=== PATIENT | female | born 1955 | race Caucasian/White ===

== ENCOUNTER → 2016-09-05 | Outpatient (CLI) | payer OTHER ==
--- NOTE | 2016-09-05 13:44 | RAD ---
Ultrasound neck soft tissue 09/05/2016 at 1310 hours Indication: Right neck lump for 2 weeks Comparison: None available Technique: Sonographic grayscale imaging of the right neck was performed. Findings: There is a 1.8 x 1.6 x 1.6 cm circumscribed, lobulated lesion in the superficial soft tissues of the right neck, which appears to be deep to the sternal erik mastoid muscle. Internal architecture is mixed with hyperechoic and hypoechoic areas suggestive of a solid lesion. There is no significant fatty arjun. There is no significant posterior shadowing. No evidence for abscess. Impression: 1.8 x 1.6 x 1.6 cm lesion in the right neck has imaging characteristics suspicious for a lymph node. This lymph node is enlarged by size criteria. Further evaluation with a dedicated neck CT is recommended for evaluation of additional lymph nodes.
== END | disposition home or self-care (01) ==
LOC: US 12:40
PROVIDERS: ATTEND Nurse Practitioner Adult Health
DX: R22.1 Localized swelling, mass and lump, neck (principal)
CPT/HCPCS: 76536

== ENCOUNTER → 2016-12-29 | Outpatient (CLI) | payer OTHER ==
--- NOTE | 2016-12-29 17:25 | RAD ---
DATE: December 29, 2016 EXAM: MAMMO NAM SCREENING BILATERAL HISTORY: Screening study COMPARISON: December 12, 2014 This study was interpreted with the benefit of Computerized Aided Detection (CAD). 2-D digital mammographic views of both breasts were performed in the CC and MLO projections. 3-D digital tomosynthesis of both breasts were performed in the CC and MLO projections and reviewed on a computer workstation. FINDINGS: The breast parenchyma is heterogeneously dense. Multiple bilateral breast nodules are again noted which are similar in density and shape and are smooth. This is a benign finding. There are no new dominant suspicious masses, suspicious microcalcifications or evidence of architectural distortion. IMPRESSION: There are no mammographic indicators for malignancy. BI-RADS CATEGORY: 2 BENIGN FINDING RECOMMENDED FOLLOW-UP: 12M 12 MONTH FOLLOW-UP PQRS compliance statement: Patient information was entered into a reminder system with a target due date December 30, 2017 for the next mammogram. Mammography is a sensitive method for finding small breast cancers, but it does not detect them all and is not a substitute for careful clinical examination. A negative mammogram does not negate a clinically suspicious finding and should not result in delay in biopsying a clinically suspicious abnormality. "Our facility is accredited by the [employer]amm[employer]." The patient's breast density may affect the ability of mammography to detect breast cancer. There are 4 categories of breast density, A, B, C and D. Breast density A means that most of the breast tissue is replaced with adipose tissue and therefore is not dense. Breast density B means that the breast tissue is mildly dense and scattered. Breast density C means that the breast tissue is heterogeneously dense. Breast density D means that the breast tissue is very dense. Breast densities especially C and D may decrease the sensitivity of mammography to detect breast cancer. Therefore, the patient may benefit from 3-D breast mammography (3D breast tomography) as a part of their screening mammogram. Insurance may or may not pay for this additional imaging. The patient's breast density based on today's mammogram is category C.
== END | disposition home or self-care (01) ==
LOC: MAMMO 14:36
PROVIDERS: ATTEND Family Medicine
DX: Z12.31 Encounter for screening mammogram for malignant neoplasm of breast (principal)
CPT/HCPCS: 77063; G0202; 77067

== ENCOUNTER → 2017-11-07 | Day surgery (SDC) | payer OTHER ==
[~2017-11-07] MED LIST: ALBUTEROL SULFATE 2.5 MG/3 ML NEBU. NEB PRN; ATROPINE 0.5 MG/5 ML DISP.SYRIN. IV PRN; CELE200C PO; CYCL-331 PO; ESTR1PAT51 TD; FENO134C PO; GABA-586 PO; IV RINGERS SOLUTION,LACTATED 1,000 ML IV SCH; LEVO88TA2 PO; LIDOCAINE 2% PF Vial for OR 5 ML VIAL. ONE; NALOXONE 0.4 MG/ML VIAL. IV PRN; NAPR-514 PO; NEBI10TA3 PO; ONDANSETRON PF 4 MG/2 ML VIAL. IV PRN; PHEN37.53 PO; POTA10TA5 PO; PROPOFOL 40 ML IV ONE; TRIA1CAP3 PO; diphenhydrAMINE 50 MG/ML VIAL IV PRN
[2017-11-07 12:00] VITALS: BP 114/64
== END | disposition home or self-care (01) ==
LOC: SURG 09:40
PROVIDERS: ATTEND Internal Medicine Gastroenterology
DX: Z12.11 Encounter for screening for malignant neoplasm of colon (principal); K63.5 Polyp of colon; K63.89 Other specified diseases of intestine; Z86.010 Personal history of colon polyps; E78.5 Hyperlipidemia, unspecified; Z98.890 Other specified postprocedural states; Z88.1 Allergy status to other antibiotic agents; Z80.3 Family history of malignant neoplasm of breast; Z88.8 Allergy status to other drugs, medicaments and biological substances; Z79.899 Other long term (current) drug therapy
CPT/HCPCS: 45385; J2704; J7120; 45380; J2001

== ENCOUNTER → 2018-01-01 | Outpatient (CLI) | payer OTHER ==
[2017-11-07 12:00] VITALS: BP 114/64
[~2018-01-01] MED LIST changes: -ALBUTEROL SULFATE 2.5 MG/3 ML NEBU. NEB PRN; -ATROPINE 0.5 MG/5 ML DISP.SYRIN. IV PRN; -IV RINGERS SOLUTION,LACTATED 1,000 ML IV SCH; -LIDOCAINE 2% PF Vial for OR 5 ML VIAL. ONE; -NALOXONE 0.4 MG/ML VIAL. IV PRN; -ONDANSETRON PF 4 MG/2 ML VIAL. IV PRN; -PROPOFOL 40 ML IV ONE; -diphenhydrAMINE 50 MG/ML VIAL IV PRN
--- NOTE | 2018-01-01 16:40 | RAD ---
DATE: 01/01/2018 EXAM: MAMMO NAM SCREENING BILATERAL HISTORY: Routine screening COMPARISON: 12/29/2016 This study was interpreted with the benefit of Computerized Aided Detection (CAD). Breast Density: HETERO The breast parenchyma is heterogenously dense, which could reduce sensitivity of mammography. Breast parenchyma level C. FINDINGS: There are numerous smooth nodules in both breasts, also evident on the previous study. No spiculated mass or architectural distortion is identified. Several benign type calcifications are noted. No suspicious microcalcifications have developed. IMPRESSION: There is no mammographic evidence of malignancy in either breast. BI-RADS CATEGORY: 2 BENIGN FINDING(S) RECOMMENDED FOLLOW-UP: 12M 12 MONTH FOLLOW-UP PQRS compliance statement: Patient information was entered into a reminder system with a target due date for the next mammogram. Mammography is a sensitive method for finding small breast cancers, but it does not detect them all and is not a substitute for careful clinical examination. A negative mammogram does not negate a clinically suspicious finding and should not result in delay in biopsying a clinically suspicious abnormality. "Our facility is accredited by the [employer] Mammography [employer]."
== END | disposition home or self-care (01) ==
LOC: MAMMO 13:40
PROVIDERS: ATTEND Family Medicine
DX: Z12.31 Encounter for screening mammogram for malignant neoplasm of breast (principal)
CPT/HCPCS: 77063; 77067

== ENCOUNTER → 2019-01-02 | Outpatient (CLI) | payer OTHER ==
[2017-11-07 12:00] VITALS: BP 114/64
--- NOTE | 2019-01-03 15:53 | RAD ---
DATE: 01/02/2019. EXAM: MAMMO NAM SCREENING BILATERAL. HISTORY: Routine mammographic screening. COMPARISON: 01/01/2018. This study was interpreted with the benefit of Computerized Aided Detection (CAD). FINDINGS: Breast Density: DENSE The breast parenchyma is dense, which could reduce the sensitivity of mammography. Breast parenchyma level density D.. There is a focus of architectural distortion superiorly and likely laterally on the left. See annotations. Multiple circumscribed/obscured nodules on the right are likely benign lesion such as cysts. Multiplicity. Scattered calcifications are benign. BI-RADS CATEGORY: 0 INCOMPLETE: NEEDS ADDITIONAL IMAGING EVALUATION AND/OR PRIOR MAMMOGRAMS FOR COMPARISON.. RECOMMENDED FOLLOW-UP: ADD ADDITIONAL IMAGING. 1. Spot compression and sonography of architectural distortion superolaterally on the left. PQRS compliance statement: Patient information was entered into a reminder system with a target due date (now) for the next mammogram. Mammography is a sensitive method for finding small breast cancers, but it does not detect them all and is not a substitute for careful clinical examination. A negative mammogram does not negate a clinically suspicious finding and should not result in delay in biopsying a clinically suspicious abnormality. "Our facility is accredited by the [employer] Mammography [employer]."
== END | disposition home or self-care (01) ==
LOC: MAMMO 15:05
PROVIDERS: ATTEND Family Medicine
DX: Z12.31 Encounter for screening mammogram for malignant neoplasm of breast (principal); N64.89 Other specified disorders of breast
CPT/HCPCS: 77063; 77067

== ENCOUNTER → 2019-01-14 | Outpatient (CLI) | payer OTHER ==
[2017-11-07 12:00] VITALS: BP 114/64
--- NOTE | 2019-01-14 15:25 | RAD ---
DATE: 01/14/2019. EXAM: DIGITAL DIAGNOSTIC LT, BREAST LEFT. HISTORY: Indeterminate findings on screening mammography. Additional views are requested. COMPARISON: 01/02/2019. This study was interpreted with the benefit of Computerized Aided Detection (CAD). FINDINGS: Breast Density: DENSE The breast parenchyma is dense, which could reduce the sensitivity of mammography. Breast parenchyma level density D.. The site of concern superiorly on the left MLO view resolves on spot compression. Mild architectural distortion appears to persist on the CC projection without a discrete lesion. On today's sonography, a complicated benign cyst at the 12:00 position 8 cm from the nipple measures 6 x 5 mm. At the 3:30 position 4 cm from the nipple, there is a lobulated hypoechoic mass measuring 1.2 x 0.6 x 0.7 cm. This may be adjacent calcaneus cyst but is indeterminate. Images of the left axilla reveal no abnormal appearing lymph nodes. BI-RADS CATEGORY: 4 SUSPICIOUS ABNORMALITY-BIOPSY SHOULD BE CONSIDERED. RECOMMENDED FOLLOW-UP: BIO BIOPSY RECOMMENDED. 1. Recommend ultrasound-guided biopsy of the lobulated mass at the 3:30 position 4 cm from the nipple. PQRS compliance statement: Patient information was entered into a reminder system with a target due date (now) for the next procedure. Mammography is a sensitive method for finding small breast cancers, but it does not detect them all and is not a substitute for careful clinical examination. A negative mammogram does not negate a clinically suspicious finding and should not result in delay in biopsying a clinically suspicious abnormality. "Our facility is accredited by the [employer]ammography [employer]."
== END | disposition home or self-care (01) ==
LOC: MAMMO 13:06
PROVIDERS: ATTEND Family Medicine
DX: N60.02 Solitary cyst of left breast (principal)
CPT/HCPCS: 76641; 77065

== ENCOUNTER → 2020-06-12 | Outpatient (CLI) | payer BC ==
[2017-11-07 12:00] VITALS: BP 114/64
[2020-06-12 11:47] LABS: ALBUMIN 3.7 g/dL (3.4-5.0); ALBUMIN/GLOBULIN RATIO 0.9 (1.0-1.7); CALCIUM 9.2 mg/dL (8.5-10.1); CREATININE 1.2 mg/dL (0.6-1.0); GFR 45.4; POTASSIUM 3.9 mmol/L (3.5-5.1); TOTAL BILIRUBIN 0.3 mg/dL (0.2-1.0); TOTAL PROTEIN 7.9 g/dL (6.4-8.2)
[2020-06-12 19:18] LABS: FREE T4 1.16 ng/dL (0.76-1.46); THYROID STIM HORMONE (TSH) 0.615 uIU/mL (0.358-3.740)
[2020-06-12 21:06] LABS: DHEA SO4 63.4 ug/dL (29.4-220.5)
== END ==
LOC: LAB 09:28
PROVIDERS: ATTEND Internal Medicine Endocrinology, Diabetes & Metabolism
DX: L65.9 Nonscarring hair loss, unspecified (principal); R53.82 Chronic fatigue, unspecified; R63.5 Abnormal weight gain
CPT/HCPCS: 36415; 80053; 82533; 82627; 83540; 83550; 84146; 84305; 84439; 84443

== ENCOUNTER → 2020-06-16 | Outpatient (CLI) | payer BC ==
[2017-11-07 12:00] VITALS: BP 114/64
== END ==
LOC: LAB 08:04
PROVIDERS: ATTEND Internal Medicine Endocrinology, Diabetes & Metabolism
DX: R63.5 Abnormal weight gain (principal)
CPT/HCPCS: 36415; 82024; 82533

== ENCOUNTER → 2021-06-01 | Outpatient (CLI) | payer BC ==
[2017-11-07 12:00] VITALS: BP 114/64
[~2021-06-01] MED LIST changes: -CYCL-331 PO; +CYCL10TA19 PO; -FENO134C PO; +FENO134C21 PO; +POTA-112 PO; -POTA10TA5 PO
[2021-06-01 15:45] LABS: BASO # 0.1 x10^3/uL (0.0-0.2); BASO % 1 % (0-3); EOS # 0.2 x10^3/uL (0.0-0.7); EOS % 2 % (0-3); HEMATOCRIT 47.1 % (36.0-47.0); HEMOGLOBIN 15.8 g/dL (12.0-15.5); LYMPH # 3.4 x10^3/uL (1.0-4.8); LYMPH % 28 % (24-48); MEAN CORPUSCULAR HEMOGLOBIN 33 pg (25-35); MEAN CORPUSCULAR HGB CONC 34 g/dL (31-37); MEAN CORPUSCULAR VOLUME 99 fL (79-100); MONO % 8 % (0-9); NEUT # 7.3 x10^3uL (1.8-7.7); NEUT % 61 % (31-73); PLATELET COUNT 270 x10^3/uL (140-400); RED BLOOD COUNT 4.74 x10^6/uL (3.50-5.40); RED CELL DISTRIBUTION WIDTH 13.3 % (11.5-14.5)
[2021-06-01 16:16] LABS: ALBUMIN 3.6 g/dL (3.4-5.0); ALBUMIN/GLOBULIN RATIO 0.9 (1.0-1.7); CALCIUM 9.6 mg/dL (8.5-10.1); CREATININE 0.8 mg/dL (0.6-1.0); GFR 72.2; POTASSIUM 4.5 mmol/L (3.5-5.1); TOTAL BILIRUBIN 0.5 mg/dL (0.2-1.0); TOTAL PROTEIN 7.8 g/dL (6.4-8.2)
[2021-06-02 01:07] LABS: FSH 7.7 mIU/mL (.); TESTOSTERONE TOTAL 8 ng/dL (3-67)
[2021-06-02 19:41] LABS: CHOLESTEROL/HDL RATIO 4.2; FREE T4 1.17 ng/dL (0.76-1.46)
[2021-06-02 19:42] LABS: THYROID STIM HORMONE (TSH) 1.211 uIU/mL (0.358-3.740)
== END ==
LOC: LAB 14:40
PROVIDERS: ATTEND Family Medicine
DX: I10 Essential (primary) hypertension (principal); E03.9 Hypothyroidism, unspecified; R63.5 Abnormal weight gain; R53.83 Other fatigue; E88.81 Metabolic syndrome and other insulin resistance; Z79.890 Hormone replacement therapy
CPT/HCPCS: 36415; 80053; 80061; 82670; 83001; 84403; 84439; 84443; 85025